=== PATIENT | male | born 1995 | race Caucasian/White ===

== ENCOUNTER 2018-06-27 16:03 | Emergency (ER) | payer OTHER ==
[~2018-06-27] VITALS: Ht 170.2 cm; Wt 93.6 kg
[2018-06-27 16:04] VITALS: BP 135/76
--- NOTE | 2018-06-27 16:57 | NUR ---
PT AMBULATED TO BED 6
--- NOTE | 2018-06-27 17:00 | NUR ---
22 YO M BIB SELF W/ C/O WOOD STUCK IN A LECERATION TO LEFT SARGENT. PT REPORTS HE WAS WALKING ABOUT 1 HOUR AGO AND HE HIT HIS LEG ON WOOD, WHICH LODGED INTO HIS LEG. STATES HE WAS ABLE TO GET MOST OF THE WOOD OUT, BUT CAN STILL FEEL SOME INSIDE THE WOUND. BLEEDING WELL CONTROLLED AT THIS TIME. PATIENT STATES PAIN OF 6/10 AT THIS TIME. PATIENT POSITIONED FOR COMFORT; HOB ELEVATED; BEDRAILS UP X2; BED DOWN. ER MD MADE AWARE OF PT STATUS.
--- NOTE | 2018-06-27 17:00 | NUR ---
Note undone in EDM - 06/27/18 at 1702 by [email or web address] 22 YO M BIB SELF W/ C/O WOOD STUCK IN A LECERATION TO LEFT CALF. PT REPORTS HE WAS WALKING ABOUT 1 HOUR AGO AND HE HIT HIS LEG ON WOOD, WHICH LODGED INTO HIS LEG. STATES HE WAS ABLE TO GET MOST OF THE WOOD OUT, BUT CAN STILL FEEL SOME INSIDE THE WOUND. BLEEDING WELL CONTROLLED AT THIS TIME. PATIENT STATES PAIN OF 6/10 AT THIS TIME. PATIENT POSITIONED FOR COMFORT; HOB ELEVATED; BEDRAILS UP X2; BED DOWN. ER MADE AWARE OF PT STATUS.
[2018-06-27] MEDS ORDERED: LIDOCAINE 2% 100 MG/5 ML UJET TP ONE (17:10)
[2018-06-27] MEDS ORDERED: LIDOCAINE 2% 1000 MG/50 ML VIAL INJ ONE ×2 (17:17→17:50)
--- NOTE | 2018-06-27 17:19 | NUR ---
Dr. Olson evaluating patient at bedside.
[2018-06-27] MEDS ORDERED: NEOMYCIN/POLYMYXIN/BACITRACIN 0.9 GM/1 PKT TP ONE ×2 (17:30→17:33)
[2018-06-27] MEDS ORDERED: LIDOCAINE 1% 500 MG/50 ML VIAL INJ SCH (17:35)
--- NOTE | 2018-06-27 17:51 | NUR ---
Patient discharged with v/s stable. Written and verbal after care instructions given and explained. Patient alert, oriented and verbalized understanding of instructions. Ambulatory with steady gait. All questions addressed prior to discharge. ID band removed. Patient advised to follow up with PMD. Rx of KEFLEX & NAPROSYN given. Patient educated on indication of medication including possible reaction and side effects. Opportunity to ask questions provided and answered.
[2018-06-27 17:52] VITALS: BP 121/67
== END 2018-06-27 17:51 | disposition home or self-care (01) ==
LOC: MED 16:03
DX: S80.852A Superficial foreign body, left lower leg, initial encounter (principal); J45.909 Unspecified asthma, uncomplicated; W22.8XXA Striking against or struck by other objects, initial encounter; Y93.89 Activity, other specified; Y92.89 Other specified places as the place of occurrence of the external cause; Y99.8 Other external cause status
CPT/HCPCS: 12001; 90471; 90715; 99284; J2001

== ENCOUNTER 2018-08-10 19:40 | Emergency (ER) | payer OTHER ==
[~2018-08-10] VITALS: Ht 180.3 cm; Wt 92.1 kg
[2018-08-10 19:52] VITALS: BP 130/80
--- NOTE | 2018-08-10 19:52 | NUR ---
PT TAKEN TO BED 2
[2018-08-10] MEDS ORDERED: cefTRIAXone 1,000 MG in DEXT 5% MINI-BAG PLUS 50 ML IV ONE (20:10)
--- NOTE | 2018-08-10 20:15 | NUR ---
Pt presents to ED for evaluation of left lower leg cellulitis. Patient states he was seen here a month ago for I&D. Pt states he was placed on antibiotics but states it it getting worse and states it hasn't cleared up entirely. Pt noted with a pencil eraser size scab, no surrounding erythema. Afebrile. NAD noted. VSS.
--- NOTE | 2018-08-10 20:21 | NUR ---
Dr. Amaya evaluating patient at bedside.
[2018-08-10 20:35] VITALS: BP 130/80
--- NOTE | 2018-08-10 20:35 | NUR ---
Patient discharged with v/s stable. Written and verbal after care instructions given and explained. Patient verbalized understanding. Ambulatory with steady gait. All questions addressed prior to discharge. Advised to follow up with PMD.
== END 2018-08-10 20:35 | disposition home or self-care (01) ==
LOC: MED 19:40
DX: L03.115 Cellulitis of right lower limb (principal); J45.909 Unspecified asthma, uncomplicated; F17.200 Nicotine dependence, unspecified, uncomplicated; Z90.49 Acquired absence of other specified parts of digestive tract
CPT/HCPCS: 71045; 99283; Q0092